=== PATIENT | female | born 1985 | race Caucasian/White ===

== ENCOUNTER 2016-12-25 21:12 | Outpatient (CLI) | END 2016-12-25 23:15 | disposition home or self-care (01) | DX: O34.13 Maternal care for benign tumor of corpus uteri, third trimester (principal); Z3A.35 35 weeks gestation of pregnancy ==

== ENCOUNTER 2017-01-10 10:28 | Outpatient (CLI) | payer OTHER ==
[~2017-01-10] VITALS: Ht 160 cm; Wt 90.8 kg
[~2017-01-10 10:28] MED LIST: FOLI-49 PO; PRENAT PO
[2017-01-10 10:56] VITALS: Ht 160 cm; Wt 90.8 kg
[2017-01-10 11:01] VITALS: BP 117/65; PULSE 83
--- NOTE | 2017-01-10 12:51 | RADRPT ---
PROCEDURE: OB ultrasound for biophysical profile CLINICAL INDICATION: Biophysical profile. TECHNIQUE: Multiple sonographic images of the pelvis were obtained. Transabdominal view of the gr avid uterus are available for review. The images were reviewed on a PACS workstation. COMPARISON: 12/25/2069 FINDINGS: breathing movement = 2/2 tone = 2/2 motion = 2/2 Quantitative amniotic fluid volume = 2/2 GEOVANY = 7.7 cm Single live intrauterine with cardiac activity at 135 beats per minute. There is a anterior placenta without previa. A moderate sized fibroid is once again seen in the anterior uterine body. IMPRESSION: 1. Single living intrauterine gestation in cephalic position. 2. Biophysical profile = 8. 3. GEOVANY = 7.7 cm. RPTAT: [facility] Physician Susi Date Time Electronically viewed and signed by Physician Susi on 01/10/2017 12:51 /
--- NOTE | 2017-02-22 09:54 | QN ---
Documentation Comment NEAR TERM SMALL FOR GESTATIONAL AGE IUGR CHEMA BROWER MD February 22, 2017 09:54
== END 2017-01-10 12:54 | disposition home or self-care (01) ==
LOC: OBT 10:28 → L-D 10:29 → OBT 12:54
PROVIDERS: ATTEND Obstetrics & Gynecology
DX: O36.5990 Maternal care for other known or suspected poor fetal growth, unspecified trimester, not applicable or unspecified (principal); Z3A.00 Weeks of gestation of pregnancy not specified
CPT/HCPCS: 76818; Z7500; G0463

== ENCOUNTER 2019-01-14 13:16 | Outpatient (CLI) | payer MEDICAID, OTHER ==
[~2019-01-14] VITALS: Ht 160 cm; Wt 93.1 kg
[2019-01-14 14:31] VITALS: Ht 160 cm; Wt 93.1 kg
[2019-01-14 14:33] VITALS: BP 111/63; PULSE 80; RESP 20
--- NOTE | 2019-01-14 16:40 | PN ---
Triage Information Date/Time Reason for visit: Patient referred from her primary OB for further management due to possible size less than date. Weeks of Gestation 39 weeks and 6 days /Para 2 para 1001 Diabetes: none Hypertention: none Objective Vital Signs Date Temp Pulse Resp B/P (MAP) Pulse Ox O2 O2 Flow FiO2 Time Delivery Rate 01/14/19 98.5 80 20 111/63 98 Room Air 14:33 (79) Heart Rate: 130's Contractions: None Results/Medications Imaging Results CLINICAL INDICATION: Size and dates , IUGR TECHNIQUE: Multiple sonographic images of the pelvis and gravid uterus were obtained. The images were reviewed on a PACS workstation. COMPARISON: No prior studies are available for comparison. FINDINGS: Gestation: Single live intrauterine gestation. Cardiac activity: 125 beats per minute. Presentation: Vertex. Placenta: Location: Fundal Appearance: No previa or abruption. Measurements: BPD = 8.9 cm, 35 weeks and 6 days HC = 32.4 cm, 36 weeks and 4 days AC = 35.1 cm, 39 weeks and 0 days FL = 7.7 cm, 39 weeks and 4 days Gestational Age: AUA estimated gestational age: 37 weeks 5 days LMP estimated gestational age: 39 weeks 6 days AUA estimated date of delivery: 01/30/19 The EFW = 3482 g, 40%ile based on LMP age. RPTAT: AA IMPRESSION: Single live intrauterine gestation of 37 weeks 5 days by ultrasound criteria. Head measurements may be inaccurate due to position. .Bill Carter MD, MD Date Time Electronically viewed and signed by .Bill Carter MD, MD on 01/14/2019 15:10 .S/ Disposition: Discharge Assessment/Plan 33 years old 2 para 1001 with single intrauterine at 39 weeks and 6 days referred from her primary OB office for suspected IUGR and antepartum testing. She states good movement. She denies nausea, vomiting, shortness of breath, chest pain, headache, visual changes, vaginal bleeding or LOF. -FHR: No sign of metabolic acidosis- Category I -Contractions: None -Ultrasound performed, GEOVANY 18.5 cm. Biophysical profile 8 out of 8 -Recommend follow-up GEOVANY and NST in 3 days -Symptoms and sign of labor, preeclampsia, kick count discussed with patient, she voiced understanding. All of her questions answered. -Patient was discharged home in stable condition with the appropriate discharge instructions provided. I would like patient to have close follow-up with her primary physician or outpatient clinic in 1-2 days or return to triage for worsening symptoms or any other urgent concerns. JOSE D MORA Jan 14, 2019 16:40
--- NOTE | 2019-01-14 18:20 | TRIAGE ---
OB Triage Datetime Report Generated by CPN: 01/14/2019 18:20 Datetime: 01/14/2019 16:07 Stage of : OB Triage Datetime: 01/14/2019 15:53 Stage of : OB Triage Datetime: 01/14/2019 15:14 Labor Evaluation Frequency: 0 Monitor Mode: External Pattern: Normal: <= 5 Contractions in 10 Minutes Resting Tone [place]: Relaxed Heart Rate FHR Baseline Rate: 130 Monitor Mode: External US Variability: Moderate 6-25 bpm Accelerations: 10X10 Decelerations: None Category: Category I Pain Assessment Pain Scale: 0 Pain Presence: None/Denies Pain Type: N/A Pain Goal: 3 Pain Relief Measures: Comfort Measures Datetime: 01/14/2019 14:43 Labor Evaluation Frequency: 0 Monitor Mode: External Pattern: Normal: <= 5 Contractions in 10 Minutes Resting Tone [place]: Relaxed Heart Rate FHR Baseline Rate: 125 Monitor Mode: External US Variability: Moderate 6-25 bpm Accelerations: 10X10 Decelerations: None Category: Category I Pain Assessment Pain Scale: 0 Pain Presence: None/Denies Pain Type: N/A Pain Goal: 3 Pain Relief Measures: Comfort Measures Datetime: 01/14/2019 14:12 Comments: bsus Datetime: 01/14/2019 14:11 Assessment Type: Triage Maternal Assessment Level of Consciousness: Fully Conscious DTR's/Clonus: DTRs 2+; No Clonus Headache: Denies Blurred Vision: No Respiratory Effort: Unlabored; Regular Rhythm; Equal Expansion Breath Sounds, Left: Clear and Equal Breath Sounds, Right: Clear and Equal Nausea/Vomiting: Denies RUQ Epigastric Pain: Denies Lower Extremities Edema: None Degree: None Upper Extremities Edema: None Degree: None Facial Edema: None Fall Risk Assessment History of Falling: (0) No Secondary Diagnosis: (0) No Ambulatory Aid: (0) Bedrest/Nurse Assist IV Therapy: (0) No Gait: (0) Normal/Bedrest/Immobile Mental Status: (0) Oriented to Own Ability Fall Score: 0 Fall Risk Score Definition: No Risk: No action required Datetime: 01/14/2019 14:08 Time of Arrival: 01/14/2019 14:05 EGA: 39.6 Arrived By: Ambulatory Arrived From: Office Chief Complaint: size vs. dates ob u/s Movement: Present Contractions: Denies/Absent Rupture of Membranes: Denies Vaginal Discharge: Denies Recent Sexual Intercouse: Denies Abdominal Trauma: Not Applicable Patient Complaints: None Time Provider Notified: 01/14/2019 15:42 Provider Notified: LAURA Initial Plan: gosiat, luisw, bpp
== END 2019-01-14 16:20 | disposition home or self-care (01) ==
LOC: OBT 13:16 → L-D 13:16 → OBT 16:20
PROVIDERS: ATTEND Obstetrics & Gynecology
DX: O26.843 Uterine size-date discrepancy, third trimester (principal); Z3A.39 39 weeks gestation of pregnancy
CPT/HCPCS: 76815; 76818; Z7500; G0463